=== PATIENT | female | born 1945 | race Caucasian/White ===

== ENCOUNTER 2019-06-23 08:00 | Outpatient (CLI) | payer MEDICARE | END 2019-06-23 23:59 | disposition home or self-care (01) | LOC: D.MAMMO 08:00 | PROVIDERS: ATTEND Family Medicine | DX: Z12.31 Encounter for screening mammogram for malignant neoplasm of breast (principal) ==

== ENCOUNTER → 2019-09-09 17:55 | Outpatient (CLI) | payer MEDICARE | END | disposition home or self-care (01) | LOC: D.LABREF 17:55 | PROVIDERS: ATTEND Urology | DX: N39.0 Urinary tract infection, site not specified (principal) ==

== ENCOUNTER 2019-09-23 05:40 | Day surgery (SDC) | payer MEDICARE ==
[~2019-09-23] VITALS: Ht 162.6 cm; Wt 64.1 kg
[2019-09-23 06:39] LABS: HEMATOCRIT 40.4 % (36.0-48.0); HEMOGLOBIN 13.6 g/dL (12-16); MCH 31.9 pg (26.0-34.0); MCHC 33.7 g/dL (31.0-37.0); MCV 94.8 fL (80.0-100.0); MEAN PLATELET VOLUME 9.3 fL (7.4-10.4); RBC 4.26 10x6/uL (4.00-5.40); RDW 14.4 % (11.5-14.5)
[2019-09-23] MEDS ORDERED: LISINOPRIL-HCT1 EAC7 PO (06:48)
[2019-09-23] MEDS ORDERED: TOPROL XL25 MG PO (06:48)
[2019-09-23] MEDS ORDERED: CALCIUM 600 +1 EAC3 PO (06:49)
[2019-09-23] MEDS ORDERED: PRAVACHOL40 MG PO (06:49)
[2019-09-23 06:50] LABS: ANION GAP 10.9 mmol/L (8-16); CALCIUM 9.4 mg/dL (8.5-10.1); CARBON DIOXIDE 28.6 mmol/L (21.0-32.0); CREATININE - SERUM 0.9 mg/dL (0.6-1.3); POTASSIUM - SERUM 3.5 mmol/L (3.5-5.1)
[2019-09-23 07:08] VITALS: BP 126/79; Ht 162.6 cm; Wt 64.1 kg
--- NOTE | 2019-09-30 17:47 | OP ---
PATIENT NAME: LUCY VELASQUEZ MEDICAL RECORD: [id number] :49 LOCATION:D.OPS ADMISSION DATE: SURGEON: KUNAL BROWN MD DATE OF OPERATION: 09/23/2019 PREOPERATIVE DIAGNOSIS: Positive for Cologuard test. POSTOPERATIVE DIAGNOSES: Positive for Cologuard test with 3 colorectal polyps. PROCEDURES: 1. Total colonoscopy to cecum. 2. Hot biopsy forceps polypectomies times 3. SURGEON: Kunal Brown MD CARGO AGENT: None. BLOOD LOSS: Minimal. ANESTHESIA: IV sedation. COMPLICATIONS: None. The risks, possible complications and alternatives to the procedure were explained to the patient. She elects to proceed. The discussion specifically included, but was not limited to, bleeding requiring emergency reoperation, infection, endoscopic perforation. ENDOSCOPIC COURSE: The patient was conveyed to endoscopy suite electively on 09/23/2019. IV sedation was induced by the anesthesia staff. The patient was placed in the Gaitan position. A digital rectal examination was performed. A colonoscope was inserted through the anus. It was easily advanced to the cecum. The prep was adequate. Upon withdrawal, I irrigated and aspirated extensively. I dragged the folds. A combination of normal imaging and narrow band imaging were utilized. Three colorectal polyps were noted. These were all sessile polyps and they ranged up to 1.1 cm in greatest dimension. All 3 polyps were removed in their entireties utilizing the hot biopsy forceps polypectomy technique. A retroflexed view was obtained in the rectum. I then unretroflexed the scope and removed it under direct vision. I will see the patient in my office in 2-3 weeks to review the results of the biopsies. TRANSINT:[id number] Voice Confirmation ID: [id number] DOCUMENT ID: [id number] KUNAL BROWN MD at 1747 CC: [id number] DICTATION DATE: 09/30/19 1600 [employer] OPERATOR: 09/30/19 1655 [facility] [place] 09/23/[address] [id number]
== END 2019-09-23 10:35 | disposition home or self-care (01) ==
LOC: D.OPS 05:40
PROVIDERS: Anesthesiology; ATTEND Surgery
DX: R19.5 Other fecal abnormalities (principal); K63.5 Polyp of colon; E78.5 Hyperlipidemia, unspecified; I10 Essential (primary) hypertension